=== PATIENT | female | born 1985 ===

== ENCOUNTER 2018-12-17 07:50 | Inpatient (IN) | payer BC, OTHER ==
[2018-12-17] MEDS ORDERED: DEXTROSE 5%-LACTATED RINGERS 1,000 ML IV SCH (09:30)
[2018-12-17 10:04] VITALS: BMI 32.1
[2018-12-17 10:48] LABS: BASO % 0.2 % (0-2.0); EOS % 0.8 % (0-4.5); HEMATOCRIT 35.4 % (32.4-45.2); HEMOGLOBIN 12.4 GM/dL (10.7-15.3); LYMPH % 13.2 % (8-40); MCH 31.9 pg (25.7-33.7); MCHC 34.9 g/dl (32.0-36.0); MEAN CELL VOLUME 91.3 fl (80-96); MEAN PLT VOLUME 9.9 fl (7.5-11.1); MONO % 3.4 % (3.8-10.2); NEUT % 82.4 % (42.8-82.8); PLATELET COUNT 187 K/MM3 (134-434); RBC 3.87 M/mm3 (3.60-5.2); WHITE BLOOD COUNT 8.1 K/mm3 (4.0-10.0)
[2018-12-17 11:07] LABS: INR 0.94 (0.83-1.09); PROTHROMBIN TIME (PATIENT) 11.1 SEC (9.7-13.0)
[2018-12-17 11:10] LABS: ACTIVATED PTT 26.3 SECONDS (25.2-36.5)
[2018-12-17 11:13] LABS: BLOOD UREA NITROGEN 5.9 mg/dL (7-18); CALCIUM 8.3 mg/dL (8.5-10.1); CREATININE 0.8 mg/dL (0.55-1.3); POTASSIUM 3.8 mmol/L (3.5-5.1)
--- NOTE | 2018-12-17 11:25 | HP ---
Past Medical History - Admission History of Present Illness: 33 y/o female with SIUP at 39.3 weeks here with SROM since 3 am. Occasional contractions. uncomplicated. +FM, no VB. History Source: Patient, Medical Record Limitations to Obtaining History: No Limitations - Past Medical History Cardiovascular: No: Aneurysm, HTN Pulmonary: No: Asthma, COPD Gastrointestinal: No: GERD Hepatobiliary: No: Hepatitis A, Hepatitis B, Hepatitis C Renal/: No: UTI Reproductive: No: Ectopic , Fibroids, PID ...: 4 ...Para: 2 ...Term: 2 ...: 0 ...Spon : 0 ...Induced : 1 ...Multiple Gestation: 0 ...LMP: 03/16/18 ... Weeks Gestation by Dates: 39.3 ...EDC by Dates: 12/21/18 Heme/Onc: No: Anemia Infectious Disease: No: HIV, MRSA, STD's Psych: No: Anxiety, Bipolar, Depression - Past Surgical History Hx Myomectomy: No Hx Transabdominal Cerclage: No - Smoking History Smoking history: Never smoked Have you smoked in the past 12 months: No - Alcohol/Substance Use Hx Alcohol Use: No History of Substance Use: reports: None - Social History Usual Living Arrangement: Yes: With Spouse ADL: Independent History of Recent Travel: No Home Medications - Allergies Allergies/Adverse Reactions: Allergies Allergy/AdvReac Type Severity Reaction Status Date / Time No Known Allergies Allergy Verified 12/17/18 08:54 - Home Medications Home Medications: Ambulatory Orders Prenat 115/Iron Fum/Folic/Dss [ 19 Tablet] 1 tab PO DAILY 12/17/18 Review of Systems - Review of Systems Constitutional: reports: No Symptoms Eyes: reports: No Symptoms HENT: reports: No Symptoms Neck: reports: No Symptoms Cardiovascular: reports: No Symptoms Respiratory: reports: No Symptoms Gastrointestinal: reports: No Symptoms Genitourinary: reports: Other (leaking fluid) Breasts: reports: No Symptoms Reported Musculoskeletal: reports: No Symptoms Integumentary: reports: No Symptoms Neurological: reports: No Symptoms Endocrine: reports: No Symptoms Hematology/Lymphatic: reports: No Symptoms Psychiatric: reports: No Symptoms Physical Exam - Maternity Vital Signs: Vital Signs Temperature 98.5 F 12/17/18 11:08 Pulse Rate 117 H 12/17/18 11:08 Respiratory Rate 20 12/17/18 11:08 Blood Pressure 95/68 12/17/18 11:08 O2 Sat by Pulse Oximetry (%) Constitutional: Yes: Well Nourished, No Distress Eyes: Yes: Conjunctiva Clear HENT: Yes: Atraumatic, Normocephalic Neck: Yes: WNL Lungs: Clear to auscultation Breast(s): Yes: WNL - Abdominal Exam/OB Fundal Height: 39 Number of Fetuses: Single Presentation: Vertex Contractions: Yes Regularity: Irregular Intensity: Mild/Mod Category: I Accelerations: Uniform Decelerations: None - Vaginal Exam/OB Vaginal Bleediing: No Dilatation (cm): 1.5 Effacement (%): 0 Amniotic Membrane Status: Ruptured Presentation: Vertex/Position Station: -3 - Physical Exam Edema: No Psychiatric: Yes: Alert, Oriented - Labs Lab Results: CBC, BMP 12/17/18 10:15 12/17/18 10:15 Hemorrhage Risk Assessment - Risk Factors Medium Risk Factors: Yes: None High Risk Factors: Yes: None Risk Score: 1 Risk Level: Medium Risk Problem List - Problems (1) PROM (premature rupture of membranes) Code(s): O42.90 - MARIAMA ROM, 7TH0 BETW RUPT & ONST LABR, UNSP WEEKS OF GEST (2) Term Code(s): Z34.90 - ENCNTR FOR SUPRVSN OF NORMAL , UNSP, UNSP TRIMESTER Assessment/Plan 33 y/o with SIUP at 39.3 weeks, PROM, no labor start pitocin epidural prn active management of labor
[2018-12-17] MEDS ORDERED: OXYTOCIN 30 UNITS in 0.9% NS 30 UNIT/500 ML INFUS.BAG IVPB SCH (11:30)
[2018-12-17] MEDS ORDERED: FENTANYL/BUPIVACAINE/NS/PF - PCEA - 50 ML DISP.SYRIN EP ONE (14:39)
[2018-12-17] MEDS ORDERED: NALOXONE HCL 0.4 MG/ML VIAL IVPUSH PRN (14:49)
[2018-12-17] MEDS ORDERED: LIDO 2%/EPI 1:200000 PRESRVFRE (20 ML SDVIAL) ONE (14:52)
[2018-12-17] MEDS: ELECTROLYTE-148 SOLN 1,000 ML IV SCH ×2 (14:55→15:47)
[2018-12-17] MEDS: FENTANYL/BUPIVACAINE/NS/PF - PCEA - 50 ML DISP.SYRIN EP SCH (15:05)
[2018-12-17] MEDS ORDERED: OXYTOCIN 20 UNITS in 0.9% NS 20 UNIT/1,000 ML INFUS.BAG IV ONE (19:25)
[2018-12-17] MEDS: OXYTOCIN 20 UNITS in 0.9% NS 20 UNIT/1,000 ML INFUS.BAG IV SCH (19:39)
--- NOTE | 2018-12-17 20:20 | PN ---
Delivery - Delivery Vaginal Delivery: No Problems Type of Anesthesia: Epidural Episiotomy/Laceration: None EBL (cc): 300 Delivery, Single - Stages of Labor Date of Delivery: 12/17/18 Time of Delivery: 19:37 Date Placenta Delivered: 12/17/18 Time Placenta Delivered: :39 Placenta: Yes: Spontaneous - Condition of Principal Librarian/Culture Manager Present: No Gender: Female Position: Left, OA - 1 Minute Total Score: 9 5 Minutes Total Score: 9 - [place] Feeding Plan Initial Plan: Exclusive throughout hospitalization - Additional Information: 33 y/o s/p normal across intact perineum from APRIL position nuchal cord X 3 noted, reduced after delivery of head anterior shoulder (right) delivered with ease along with remainder of 3vc noted, clamped and cut placenta delivered in tact and spontaneously no laceration repair needed EBL 300 sponge count correct mom stable baby to well baby nursery
[2018-12-17] MEDS ORDERED: METHYLERGONOVINE MALEATE 0.2 MG/1 ML AMP IM PRN (20:21)
[2018-12-17] MEDS ORDERED: BISACODYL 10 MG SUPP.RECT RC PRN (20:21)
[2018-12-17] MEDS ORDERED: WITCH HAZEL 50% (TUCKS) 40 PAD/JAR PAD TP PRN (20:21)
[2018-12-17] MEDS ORDERED: BENZOCAINE 20% 57 GM BOTTLE TP PRN (20:21)
[2018-12-17] MEDS ORDERED: BENZOCAINE 28 GM HEMORRHOIDAL OINTMENT TP PRN (20:21)
[2018-12-17] MEDS: IBUPROFEN 600 MG TABLET (FP) PO PRN (23:42)
[2018-12-17] MEDS: ACETAMINOPHEN 325 MG TABLET (FP) PO PRN (23:43)
--- NOTE | 2018-12-18 07:56 | PN ---
Post Progress Note - Subjective Subjective: Pt seen/evaluated early this a.m. Awake in bed with infant. No complaints. Ambulating, voiding, passing flatus, tolerating diet. Feeling well. Type of Delivery: Vital Signs: Vital Signs Temperature 97.7 F 12/18/18 06:09 Pulse Rate 76 12/18/18 06:09 Respiratory Rate 20 12/18/18 06:09 Blood Pressure 119/89 12/18/18 06:09 O2 Sat by Pulse Oximetry (%) 100 12/17/18 19:20 Uterus: Yes: Fundus Firm Abdomen/GI: Yes: Abdomen soft Lochia: Yes: Rubra Lochia, amount: Small Extremities: Yes: Calves non-tender Perineum: Yes: Intact Activity: Ambulating - Labs Labs: CBC WBC 8.1 K/mm3 (4.0-10.0) 12/17/18 10:15 RBC 3.87 M/mm3 (3.60-5.2) 12/17/18 10:15 Hgb 12.4 GM/dL (10.7-15.3) 12/17/18 10:15 Hct 35.4 % (32.4-45.2) 12/17/18 10:15 MCV 91.3 fl (80-96) 12/17/18 10:15 MCH 31.9 pg (25.7-33.7) 12/17/18 10:15 MCHC 34.9 g/dl (32.0-36.0) 12/17/18 10:15 RDW 14.0 % (11.6-15.6) 12/17/18 10:15 Plt Count 187 K/MM3 (134-434) 12/17/18 10:15 MPV 9.9 fl (7.5-11.1) 12/17/18 10:15 Absolute Neuts (auto) 6.7 K/mm3 (1.5-8.0) 12/17/18 10:15 Neutrophils % 82.4 % (42.8-82.8) 12/17/18 10:15 Lymphocytes % 13.2 % (8-40) 12/17/18 10:15 Monocytes % 3.4 % (3.8-10.2) L 12/17/18 10:15 Eosinophils % 0.8 % (0-4.5) 12/17/18 10:15 Basophils % 0.2 % (0-2.0) 12/17/18 10:15 Nucleated RBC % 0 % (0-0) 12/17/18 10:15 Problem List - Problems (1) PROM (premature rupture of membranes) Code(s): O42.90 - MARIAMA ROM, 7TH0 BETW RUPT & ONST LABR, UNSP WEEKS OF GEST (2) Term Code(s): Z34.90 - ENCNTR FOR SUPRVSN OF NORMAL , UNSP, UNSP TRIMESTER (3) Vaginal delivery Code(s): O80 - ENCOUNTER FOR FULL-TERM UNCOMPLICATED DELIVERY Assessment/Plan 33 y/o PPD#1 s/p normal AFVSS Await CBC regular diet ambulation routine care
[2018-12-18] MEDS: ACETAMINOPHEN 325 MG TABLET (FP) PO PRN ×2 (08:01→20:10)
[2018-12-18] MEDS: IBUPROFEN 600 MG TABLET (FP) PO PRN ×2 (08:02→20:11)
[2018-12-18 08:17] LABS: BASO % 0.2 % (0-2.0); EOS % 1.6 % (0-4.5); HEMOGLOBIN 11.2 GM/dL (10.7-15.3); MCH 32.3 pg (25.7-33.7); MEAN CELL VOLUME 92.2 fl (80-96); MEAN PLT VOLUME 10.1 fl (7.5-11.1); NEUT % 74.2 % (42.8-82.8); PLATELET COUNT 155 K/MM3 (134-434); RBC 3.48 M/mm3 (3.60-5.2); RDW 13.7 % (11.6-15.6); WHITE BLOOD COUNT 9.3 K/mm3 (4.0-10.0)
[2018-12-18] MEDS: PRENATAL VITAMINS W/ FOLIC ACID TABLET (FP) PO SCH (09:49)
[2018-12-18] MEDS ORDERED: SENNOSIDES/DOCUSATE COMBO (SENNA PLUS) TABLET (UD) PO PRN (22:00)
[2018-12-19] MEDS: OXYTOCIN 20 UNITS in 0.9% NS 20 UNIT/1,000 ML INFUS.BAG IV SCH (00:05)
[2018-12-19] MEDS: FENTANYL/BUPIVACAINE/NS/PF - PCEA - 50 ML DISP.SYRIN EP SCH (00:05)
[2018-12-19 07:52] VITALS: BP 120/84; PULSE 81; TEMP 98.4
--- NOTE | 2018-12-19 08:38 | DS ---
Physical Exam-[employer] Vital Signs: Vital Signs Temperature 98.4 F 12/19/18 07:50 Pulse Rate 81 12/19/18 07:50 Respiratory Rate 20 12/19/18 07:50 Blood Pressure 120/84 12/19/18 07:50 O2 Sat by Pulse Oximetry (%) 100 12/17/18 19:20 Constitutional: Yes: Well Nourished, No Distress Eyes: Yes: Conjunctiva Clear, EOM Intact HENT: Yes: Normocephalic Neck: Yes: Supple, Trachea Midline Cardiovascular: Yes: Regular Rate and Rhythm Respiratory: Yes: Regular, CTA Bilaterally Gastrointestinal: Yes: Normal Bowel Sounds ....Post : Yes: Uterus firm, Uterus non-tender Neurological: Yes: Alert, Oriented Psychiatric: Yes: Alert, Oriented Labs: CBC, BMP 12/18/18 07:01 12/17/18 10:15 Delivery - Delivery Vaginal Delivery: No Problems Type of Anesthesia: Epidural Episiotomy/Laceration: None EBL (cc): 300 Delivery, Single - Stages of Labor Date 1st Stage Initiatied: 12/17/18 Time 1st Stage Initiated: 15:00 Date 2nd Stage Initiated: 12/17/18 Time 2nd Stage Initiated: 19:20 Date of Delivery: 12/17/18 Time of Delivery: 19:37 Time Placenta Delivered: 19:39 Placenta: Yes: Spontaneous - Condition of Infant Director Apparel/Centrifugal Casting Machine Tender Present: No Gender: Female Weight: 6 lb 12 oz Position: Left, OA Total Hours ROM (Hrs/Mins): 16h09m - 1 Minute Total Score: 9 5 Minutes Total Score: 9 - [place] Feeding Plan Initial Plan: Exclusive throughout hospitalization Discharge Summary Reason For Visit: LABOR ADMISSION Current Active Problems PROM (premature rupture of membranes) (Acute) Term (Acute) Vaginal delivery (Acute) Hospital Course: Pt admitted on 12/17/18 with SROM/early labor. Labor augmented with pitocin and she underwent normal on 12/17/18. She underwent an uncomplicated post recovery and was discharged home on post day 2. - Instructions Diet, Activity, Other Instructions: return to office in 4-6 weeks. call for appointment. Referrals: Ameena Perales DO [Staff Physician] - - Home Medications Comprehensive Discharge Medication List: Ambulatory Orders Prenat 115/Iron Fum/Folic/Dss [ 19 Tablet] 1 tab PO DAILY 12/17/18
[2018-12-19] MEDS: PRENATAL VITAMINS W/ FOLIC ACID TABLET (FP) PO SCH (09:50)
== END 2018-12-19 11:20 | disposition home or self-care (01) | DRG 807 ==
LOC: JDEL 07:50 → JLDR 09:30 → J3W 22:14
PROVIDERS: ADMIT Obstetrics & Gynecology; ATTEND Obstetrics & Gynecology
PROC: 10E0XZZ Delivery of Products of Conception, External Approach (ICD-10-PCS; principal; 2018-12-17)
PROC: 3E0R3BZ Introduction of Anesthetic Agent into Spinal Canal, Percutaneous Approach (ICD-10-PCS; 2018-12-17)
DX: O42.02 Full-term premature rupture of membranes, onset of labor within 24 hours of rupture (principal); Z37.0 Single live birth; O69.81X0 Labor and delivery complicated by cord around neck, without compression, not applicable or unspecified; Z3A.39 39 weeks gestation of pregnancy
CPT/HCPCS: 36415; 59409; 80048; 85025; 85610; 85730; 86593; 86850; 86900; 86901